=== PATIENT | female | born 1935 | race Caucasian/White ===

== ENCOUNTER 2017-04-11 06:57 | Day surgery (SDC) | payer OTHER ==
[~2017-04-11] VITALS: Ht 144.8 cm; Wt 52.6 kg
[~2017-04-11 06:57] MED LIST: ACID CONTROL150 MG PO; ADVAIR HFA120 INHALA IH; ALENDRONATE SOD70 MG PO; ALLOPURINOL100 MG PO; ALLOPURINOL300 MG PO; AMARYL2 MG PO; AMARYL4 MG PO; APRESOLINE50 MG PO; ASPIR 8181 M1 PO; ASPIRIN81 M2 PO; ATORVASTATIN CA40 MG PO; BABY ASPIRIN81 M1 PO; BENZONATATE100 MG PO; CALCIUM 500 +1 EACH PO; CALCIUM ACETAT667 MG PO; CALPHRON667 MG PO; CARVEDILOL3.125 MG PO; CARVEDILOL6.25 MG PO; CEFEPIME HCL1 GM IV; CEFPODOXIM50 MG/5 ML PO; COREG12.5 M1 PO; CYCLOBENZAPRINE5 MG PO; Colace PO; DULCOLAX10 MG PR; FLEET ENEMA-AD118 ML PR; FLORASTOR250 MG PO; FOLBEE PLUS TABL5 M1 PO; FOLBEE PLUS TABL5 MG PO; FUROSEMIDE20 MG PO; GERI-TUSSI100 MG/5 M PO; GLUCOPHAGE XR,500 MG PO; HUMALOG100 UNIT/2 SC; HYDRALAZINE HCL10 MG PO; HYOSCYAMINE0.125 M1 SL; HYOSCYAMINE0.125 MG SL; IMODIUM MS REL1 EACH PO; ISOSORBIDE MONO30 MG PO; JANUVIA25 M1 PO; LASIX20 MG PO; LASIX40 MG PO; LEVOTHYROXINE88 MCG PO; LIPITOR20 MG PO; LIPITOR40 MG PO; LOVAZA1 GM PO; MAGNESIUM250 M1 PO; MAGNESIUM400 M1 PO; MAGOX 400400 MG PO; MECLIZINE HCL25 MG PO; MILK OF MAGNESI10 ML PO; NIRAVAM0.5 MG PO; NOVOLOG PE100 UNITS/ SC; PANTOPRAZOLE SO40 MG PO; PERCOCET 10/1 TABLET; PERCOCET 10/1 TABLET PO; PRAVACHOL40 MG PO; PREDNISONE10 MG PO; PRILOSEC20 MG PO; PROBIOTIC1 EAC2 PO; PROTONIX40 MG PO; PRUNE JUICE PO; Protonix PO; RANITIDINE HCL150 M1 PO; REMERON15 M2 PO; RENAPLEX-D PO; REQUIP0.25 MG PO; REQUIP0.5 MG PO; REQUIP1 MG PO; ROBITUSSIN AC,T10 ML PO; ROCALTROL0.25 MCG PO; ROPINIROLE HC0.25 MG PO; SYNTHROID100 MCG PO; TESSALON PERLE100 MG PO; TIROSINT75 MCG PO; TRAMADOL HCL50 MG PO; TRIAMTERENE-HC1 EACH PO; TYLENOL REGULA325 MG PO; TYLENOL650 MG PR; Tums PO; Tylenol Regular Stre PO; VALTREX1000 MG PO; Vitamin D, Drisdol PO; XANAX0.5 MG PO; ZESTRIL20 MG PO
[2017-04-11 07:48] LABS: POINT-OF-CARE METER ID UU13113696
[2017-04-11 09:00] LABS: METH RESISTANT S AUREUS PCR NEGATIVE (NEGATIVE)
[2017-04-11 09:02] LABS: PROBE CHECK PASS; SPECIMEN PROCESSING CONTROL PASS
== END 2017-04-11 09:30 | disposition home or self-care (01) ==
LOC: CATH 06:57
PROVIDERS: Surgery
DX: T82.858A Stenosis of other vascular prosthetic devices, implants and grafts, initial encounter (principal); I12.0 Hypertensive chronic kidney disease with stage 5 chronic kidney disease or end stage renal disease; N18.6 End stage renal disease; Z99.2 Dependence on renal dialysis; I25.10 Atherosclerotic heart disease of native coronary artery without angina pectoris; J44.9 Chronic obstructive pulmonary disease, unspecified; I25.2 Old myocardial infarction; E03.9 Hypothyroidism, unspecified; Z88.0 Allergy status to penicillin; Z79.82 Long term (current) use of aspirin
CPT/HCPCS: 82948; 87641; C1725; C1769; C1874; C1894; J1644; J2250; J3010

== ENCOUNTER 2017-07-09 18:24 | Emergency (ER) | payer OTHER ==
[~2017-07-09] VITALS: Ht 147.3 cm; Wt 55.7 kg
[2017-07-09 19:25] LABS: MCH 32.7 PG (29.0-34.0); MCHC 33.6 G/DL (30.0-36.0); MCV 97.3 FL (83-99); MEAN PLAT.VOLUME 11.5 uM^3 (9.5-12.4); PLATELET COUNT 170 K/uL (156-360); RBC DIS.WIDTH-CV 16.4 % (11.8-14.6); RBC DIS.WIDTH-SD 56.4 % (39-53); RED BLOOD COUNT 3.39 M/uL (3.80-5.20); WHITE BLOOD COUNT 8.8 K/uL (4.1-10.2)
[2017-07-09 19:34] LABS: CHLORIDE 100 mEq/L (99-109); POTASSIUM 4.7 mEq/L (3.7-5.4); SODIUM 135 mEq/L (136-147)
[2017-07-09 19:36] LABS: GLUCOSE 158 mg/dL (70-99)
[2017-07-09 19:37] LABS: ANION GAP 12 MEQ/L (2-14)
[2017-07-09 19:39] LABS: CARBON DIOXIDE (BICARBONATE) 29.4 MEQ/L (20-31)
[2017-07-09 19:40] LABS: GFR ESTIMATE (CALCULATED) 8 mL/min/; UREA NITROGEN (BUN) 32 mg/dL (9-23)
[2017-07-09 19:44] LABS: TROP-I INTERPRETATION NEGATIVE; TROPONIN-I 0.05 ng/mL (0.0-0.30)
[2017-07-09] MEDS ORDERED: PREDNISONE20 MG PO (21:04)
[2017-07-09 21:30] VITALS: BP 117/66
== END 2017-07-09 21:30 | disposition home or self-care (01) ==
LOC: EME 18:24
PROVIDERS: Emergency Medicine
DX: J44.1 Chronic obstructive pulmonary disease with (acute) exacerbation (principal); I50.9 Heart failure, unspecified; N18.9 Chronic kidney disease, unspecified; I25.2 Old myocardial infarction; Z99.2 Dependence on renal dialysis; E03.9 Hypothyroidism, unspecified; M10.9 Gout, unspecified; F41.9 Anxiety disorder, unspecified; Z85.850 Personal history of malignant neoplasm of thyroid; Z95.2 Presence of prosthetic heart valve; Z79.82 Long term (current) use of aspirin; Z88.0 Allergy status to penicillin; Z91.040 Latex allergy status
CPT/HCPCS: 71020; 80048; 82803; 83605; 83880; 84484; 85027; 87040; 93005; 94640; 99281; 99285; J7512

== ENCOUNTER → 2018-01-07 | Outpatient (CLI) | payer OTHER ==
[~2018-01-07] MED LIST changes: +ATORVASTATIN CA10 MG PO; +PREDNISONE20 MG PO; +ZOFRAN8 MG PO
[2018-01-07 14:13] LABS: TYPE OF FLUID PARACENTESIS
[2018-01-07 14:55] LABS: APPEARANCE CLEAR-COLORLESS; BODY FLUID RBC'S < 1000 /MM^3 (0-100); BODY FLUID WBC'S 75 /MM^3 (0-500)
[2018-01-07 15:01] LABS: BODY FLUID AMYLASE < 10 U/L; BODY FLUID LDH 26 IU/L; BODY FLUID PROTEIN < 3.0 G/DL
[2018-01-07 15:16] LABS: BODY FLUID EOSINOPHILS 0 % (0-25); MONONUCLEAR WBC'S 64 %; POLYNUCLEAR WBC'S 36 % (0-25)
== END | disposition home or self-care (01) ==
LOC: RAD 13:12
PROVIDERS: Specialist
PROC: 0W9G3ZZ Drainage of Peritoneal Cavity, Percutaneous Approach (ICD-10-PCS; principal; 2018-01-07)
DX: R18.8 Other ascites (principal)
CPT/HCPCS: 49083; 82150 91; 83615 91; 84157; 87070; 87075; 87205; 88108; 89051; P9047

== ENCOUNTER → 2018-01-21 | Outpatient (CLI) | payer OTHER ==
[~2018-01-21] MED LIST changes: +LORATADINE10 M3 PO; +MIDODRINE HCL5 MG PO
== END | disposition home or self-care (01) ==
LOC: RAD 12:49
PROC: 0W9G3ZZ Drainage of Peritoneal Cavity, Percutaneous Approach (ICD-10-PCS; principal; 2018-01-21)
DX: R18.8 Other ascites (principal); K74.60 Unspecified cirrhosis of liver; I95.9 Hypotension, unspecified
CPT/HCPCS: 49083; P9047

== ENCOUNTER → 2018-02-04 | Outpatient (CLI) | payer OTHER ==
[2018-02-04 15:26] LABS: TYPE OF FLUID PARACENTESIS
[2018-02-04 15:51] LABS: APPEARANCE CLEAR-YELLOW; BODY FLUID RBC'S < 1000 /MM^3 (0-100); BODY FLUID WBC'S 100 /MM^3 (0-500)
[2018-02-04 16:37] LABS: BODY FLUID EOSINOPHILS 0 % (0-25); MONONUCLEAR WBC'S 79 %; POLYNUCLEAR WBC'S 21 % (0-25)
[2018-02-04 17:37] LABS: BODY FLUID AMYLASE < 10 U/L; BODY FLUID PROTEIN < 3.0 G/DL
[2018-02-04 17:40] LABS: BODY FLUID GLUCOSE 151 MG/DL; BODY FLUID LDH 34 IU/L
[2018-02-05 16:43] LABS: BODY FLUID PH 8.2 (())
== END | disposition home or self-care (01) ==
LOC: RAD 13:18
PROVIDERS: Specialist
PROC: 0W9G3ZZ Drainage of Peritoneal Cavity, Percutaneous Approach (ICD-10-PCS; principal; 2018-02-04)
DX: R18.8 Other ascites (principal)
CPT/HCPCS: 49083; 82150 91; 82945; 83615 91; 83986 90; 84157; 87205; 88108; 89051

== ENCOUNTER → 2018-02-18 | Outpatient (CLI) | payer OTHER | END | disposition home or self-care (01) | LOC: RAD 12:35 | PROC: 0W9G3ZZ Drainage of Peritoneal Cavity, Percutaneous Approach (ICD-10-PCS; principal; 2018-02-18) | DX: R18.8 Other ascites (principal) | CPT/HCPCS: 49083 ==

== ENCOUNTER → 2018-03-11 | Outpatient (CLI) | payer OTHER | END | disposition home or self-care (01) | LOC: RAD 03-04 13:15 | PROC: 0W9G3ZZ Drainage of Peritoneal Cavity, Percutaneous Approach (ICD-10-PCS; principal; 2018-03-11) | DX: R18.8 Other ascites (principal) | CPT/HCPCS: 49083 ==

== ENCOUNTER 2018-03-15 04:53 | Inpatient (IN) | payer OTHER ==
[~2018-03-15] VITALS: Ht 144.8 cm; Wt 48.6 kg
[~2018-03-15 04:53] MED LIST changes: +MAGNESIUM250 MG PO; -MAGNESIUM400 M1 PO; +PERCOCET 5/31 TABLET PO; -SYNTHROID100 MCG PO; +SYNTHROID112 MCG PO
[2018-03-15 06:29] LABS: HEMATOCRIT 29.9 % (36.0-46.0); HEMOGLOBIN 10.1 G/DL (11.9-15.5); MCHC 33.8 G/DL (30.0-36.0); MCV 97.7 FL (83-99); PLATELET COUNT 164 K/uL (156-360); RBC DIS.WIDTH-CV 19.2 % (11.8-14.6); RBC DIS.WIDTH-SD 67.7 % (39-53); RED BLOOD COUNT 3.06 M/uL (3.80-5.20); WHITE BLOOD COUNT 11.2 K/uL (4.1-10.2)
[2018-03-15 06:36] LABS: PTT 50.3 SEC (25-37)
[2018-03-15 06:43] LABS: ALBUMIN 2.2 g/dL (3.2-4.8); CHLORIDE 98 mEq/L (99-109); POTASSIUM 3.9 mEq/L (3.7-5.4); SODIUM 139 mEq/L (136-147)
[2018-03-15 06:45] LABS: GLUCOSE 104 mg/dL (70-99); TOTAL PROTEIN 4.4 g/dL (6.4-8.3)
[2018-03-15 06:47] LABS: TOTAL BILIRUBIN 1.1 mg/dL (0.0-1.0)
[2018-03-15 06:49] LABS: ALKALINE PHOSPHATASE 443 IU/L (3-129); GFR ESTIMATE (CALCULATED) 16 mL/min/
[2018-03-15 06:50] LABS: AST (GOT) 52 IU/L (2-34); UREA NITROGEN (BUN) 19 mg/dL (9-23)
[2018-03-15 06:52] LABS: ALT (GPT) 27 IU/L (3-49)
[2018-03-15 08:07] LABS: INTER. NORMALIZED RATIO 6.3
[2018-03-15] MEDS ORDERED: ACETAMINOPHEN1 EAC4 PO (10:35)
[2018-03-15] MEDS ORDERED: SYNTHROID112 MCG PO (10:39)
[2018-03-15] MEDS ORDERED: COUMADIN3 MG PO (10:44)
[2018-03-15 16:08] VITALS: BP 85/37
[2018-03-15 19:05] VITALS: BP 90/43
[2018-03-15 22:44] VITALS: BP 88/38
[2018-03-16 03:33] VITALS: BP 112/53
[2018-03-16 07:41] VITALS: BP 125/60
[2018-03-16 11:05] VITALS: BP 105/51
[2018-03-16 15:47] VITALS: BP 92/41
[2018-03-17] MEDS ORDERED: OXYCODONE-APAP1 EACH PO (11:44)
[2018-03-17] MEDS ORDERED: TYLENOL REGULA325 MG PO (11:44)
[2018-03-17] MEDS ORDERED: TRANSDERM-SCOP1 EACH TD (11:44)
[2018-03-17] MEDS ORDERED: LORAZEPAM2 MG/1 M1 IV (11:44)
[2018-03-17] MEDS ORDERED: morphine Sulfate IV (11:44)
[2018-03-17 14:21] VITALS: BP 000/00
== END 2018-03-17 14:42 | disposition hospice, home (50) | DRG 535 ==
LOC: EME → EDBD 04:53 → TRA 04:53 → EME 04:53 → ENRESERV 09:16 → EDOF 09:20 → 5EAST 09:20 → ENRESERV 12:54 → EDOF 14:10 → 5EAST 14:28
PROVIDERS: Emergency Medicine
DX: S32.592A Other specified fracture of left pubis, initial encounter for closed fracture (principal); N18.6 End stage renal disease; S32.110A Nondisplaced Zone I fracture of sacrum, initial encounter for closed fracture; S42.411A Displaced simple supracondylar fracture without intercondylar fracture of right humerus, initial encounter for closed fracture; R18.8 Other ascites; K76.6 Portal hypertension; I13.2 Hypertensive heart and chronic kidney disease with heart failure and with stage 5 chronic kidney disease, or end stage renal disease; Z66 Do not resuscitate; Z51.5 Encounter for palliative care; W06.XXXA Fall from bed, initial encounter; J98.11 Atelectasis; J90 Pleural effusion, not elsewhere classified; F05 Delirium due to known physiological condition; S62.611A Displaced fracture of proximal phalanx of left index finger, initial encounter for closed fracture; S52.121A Displaced fracture of head of right radius, initial encounter for closed fracture; S32.591A Other specified fracture of right pubis, initial encounter for closed fracture; M47.812 Spondylosis without myelopathy or radiculopathy, cervical region; D63.1 Anemia in chronic kidney disease; E11.22 Type 2 diabetes mellitus with diabetic chronic kidney disease; E11.319 Type 2 diabetes mellitus with unspecified diabetic retinopathy without macular edema; E89.0 Postprocedural hypothyroidism; I50.9 Heart failure, unspecified; J44.9 Chronic obstructive pulmonary disease, unspecified; K74.60 Unspecified cirrhosis of liver; I48.0 Paroxysmal atrial fibrillation; I35.0 Nonrheumatic aortic (valve) stenosis; E78.00 Pure hypercholesterolemia, unspecified; E78.5 Hyperlipidemia, unspecified; K31.89 Other diseases of stomach and duodenum; Y93.01 Activity, walking, marching and hiking; Y92.092 Bedroom in other non-institutional residence as the place of occurrence of the external cause; K42.9 Umbilical hernia without obstruction or gangrene; I86.8 Varicose veins of other specified sites; K72.10 Chronic hepatic failure without coma; G25.81 Restless legs syndrome; I25.10 Atherosclerotic heart disease of native coronary artery without angina pectoris; K21.9 Gastro-esophageal reflux disease without esophagitis; M85.80 Other specified disorders of bone density and structure, unspecified site; F41.9 Anxiety disorder, unspecified; G89.29 Other chronic pain; M10.9 Gout, unspecified; M54.5 Low back pain; Z91.81 History of falling; Z85.850 Personal history of malignant neoplasm of thyroid; Z99.2 Dependence on renal dialysis; Z95.2 Presence of prosthetic heart valve; Z90.710 Acquired absence of both cervix and uterus; Z86.718 Personal history of other venous thrombosis and embolism; Z79.82 Long term (current) use of aspirin; Z79.01 Long term (current) use of anticoagulants; Z88.0 Allergy status to penicillin; Z91.040 Latex allergy status; Z88.1 Allergy status to other antibiotic agents; Z79.51 Long term (current) use of inhaled steroids
CPT/HCPCS: 70450; 71045; 71260; 72125; 72170; 73080; 73130; 73200; 73630; 74177; 80048; 80053; 85027; 85610; 85730; 99281; 99285; J2060; J2270; J2405; J3010; J3430; J7050